=== PATIENT | male | born 1940 | race Caucasian/White ===

== ENCOUNTER 2017-09-29 07:52 | Emergency (ER) | payer OTHER ==
[~2017-09-29] VITALS: Ht 172.7 cm; Wt 63.5 kg
[~2017-09-29 07:52] MED LIST: MECLIZINE HCL12.5 M1 PO; NASONEX17 GM NASB
[2017-09-29 07:56] VITALS: BP 149/81
[2017-09-29] MEDS ORDERED: KEFLEX500 M1 PO (08:27)
--- NOTE | 2017-09-29 08:28 | ED SKIN/ALLERGY COMPLAINT ---
History of Present Illness General Chief Complaint: Male Genitourinary Problems Stated Complaint: "SWOLLEN GLAND I WANT CHECKED" Source: patient, family, old records Exam Limitations: no limitations Vital Signs & Intake/Output Vital Signs & Intake/Output Vital Signs Date Time Temp Pulse Resp B/P B/P Pulse O2 O2 Flow FiO2 Mean Ox Delivery Rate 09/29 0805 99 Room Air 09/29 0756 97.3 81 15 149/81 97 Room Air Room Air Allergies Coded Allergies: lactose (Intermediate, GI UPSET 09/29/17) Reconcile Medications Cephalexin (Keflex) 500 MG CAPSULE 1 CAP PO TID abscess Meclizine HCl 12.5 MG TABLET 1 TAB PO TID PRN dizziness Mometasone Furoate (Nasonex) 50 MCG SPRAY.PUMP 2 SPRAY NASB DAILY sinus Triage Note: PT TO ED FOR C/C OF ?CLOGGED SWEAT GLAND TO R GROIN AREA. PT HAS HAD SAME IN THE PAST AND REPORTS IT FEELS THE SAME. Triage Nurses Notes Reviewed? yes Onset: Last week Duration: constant, continues in ED Timing: recent history Severity: mild, moderate Location: torso Possible Factors: no cause identified No Modifying Factors: none Associated Symptoms: change in skin texture, swelling/mass/lumps HPI: 3 days prior to admission patient notes a lump in right inguinal area painful red similar to previous abscess and left inguinal area that was I and D'ed by Dr. Fernandez. He denies fever chills nausea vomiting diarrhea abdominal pain chest pain shortness breath headache dysuria bleeding testicular pain penile discharge. Past History Travel History Traveled to [place] past 21 day No Medical History Any Pertinent Medical History? 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 No Review of Systems Review of Systems Constitutional: Reports: no symptoms. EENTM: Reports: no symptoms. Respiratory: Reports: no symptoms. Cardiovascular: Reports: no symptoms. GI: Reports: no symptoms. Genitourinary: Reports: no symptoms. Musculoskeletal: Reports: no symptoms. Skin: Reports: see HPI, cysts, erythema. Neurological/Psychological: Reports: no symptoms. Hematologic/Endocrine: Reports: no symptoms. Immunologic/Allergic: Reports: no symptoms. All Other Systems: Reviewed and Negative Physical Exam Physical Exam General Appearance: well developed/nourished, mild distress Head: atraumatic Eyes: Bilateral: PERRL, EOMI. Ears, Nose, Throat: normal pharynx, normal ENT inspection, hearing grossly normal Neck: normal inspection, supple Respiratory: normal breath sounds Cardiovascular: regular rate/rhythm Peripheral Pulses: 2+ carotid (R), 2+ carotid (L) Gastrointestinal: normal bowel sounds, soft, non-tender, no organomegaly Back: normal inspection Extremities: normal inspection, normal range of motion, no edema Neurologic/Psych: awake, alert, oriented x 3, normal mood/affect Reflexes: 2+: bicep (R), bicep (L). Skin: intact, normal color, rash Skin Problem Location: torso (R inguinal area) Skin Problem Character: abcess, erythema, rash, tenderness, thickening Lymphatic: no anterior cervical inocencio, inguinal node tender (R) Progress Differential Diagnosis: abscess/cellulitis, allergic reaction Plan of Care: Current Medications Sig/Anabella Start time Last Medication Dose Stop Time Status Admin Cephalexin 500 MG ONCE ONE 09/29 829 AC (Keflex) 09/29 830 Departure Departure Time of Disposition: 825 Disposition: HOME OR SELF CARE Condition: Stable Clinical Impression Primary Impression: Abscess of groin, right Referrals: Jim DAN,Kosta Camilo MD,Barber Cisneros (PCP/Family) Departure Forms: Customer Survey General Discharge Information Prescriptions: Current Visit Scripts Cephalexin (Keflex) 1 CAP PO TID #21 CAP
== END 2017-09-29 08:36 ==
LOC: ERH 07:52
DX: L02.214 Cutaneous abscess of groin (principal)